=== PATIENT | female | born 1980 | race Caucasian/White ===

== ENCOUNTER → 2016-07-28 | Outpatient (CLI) | payer BC, OTHER ==
[~2016-07-28] MED LIST: BUPR8SUB19 SL; GUAN1TAB12 PO; LISD50CA4 PO; PENI-82 PO; SERT25TA PO
[2016-07-28 14:01] LABS: BENZODIAZEPINE, URINE NEG (NEG); COCAINE,URINE NEG (NEG); PHENCYCLIDINE, URINE NEG (NEG)
== END | disposition home or self-care (01) ==
LOC: C.LAB1850 12:18
PROVIDERS: ATTEND Psychiatry & Neurology Psychiatry
DX: F33.2 Major depressive disorder, recurrent severe without psychotic features (principal)

== ENCOUNTER 2016-08-07 02:39 | Emergency (ER) | payer BC, OTHER ==
[~2016-08-07] VITALS: Ht 162.6 cm; Wt 60.0 kg
[~2016-08-07 02:39] MED LIST changes: -PENI-82 PO
[2016-08-07 02:44] VITALS: TEMP 36.6; Ht 162.6 cm; Wt 60.0 kg
[2016-08-07] MEDS ORDERED: KETOROLAC TROMETHAMINE 30 MG/ML VIAL IV STA (02:58)
--- NOTE | 2016-08-07 03:04 | EMERGENCY ROOM VISIT NOTE ---
History Report prepared by Claudia: Heather Arzola Under the Supervision of: Dr. Laney Pierre D.O. First contact with patient: 02:48 Chief Complaint: DENTAL PAIN Stated Complaint: ABSCESSED TOOTH,ETC. Nursing Triage Summary: pt c/o left facial swelling and pain since sunday morning, states does have a bad tooth on left top. has not seen or contacted a dentist History of Present Illness The patient is a 36 year old female who presents to the Emergency Room with complaints of worsening dental pain beginning yesterday. The patient states that she has been experiencing pain due to an abscess to her top tooth. She notes she woke up with pain and swelling. The patient denies fevers or chills. She notes that dental problems have been a worsening issues these past few years. Source of History: patient Onset: yesterday Position: teeth Timing: worsening Associated Symptoms: No chills, No fevers Note: Patient is experiencing swelling to tooth. Review of Systems See HPI for pertinent positives & negatives. A total of 10 systems reviewed and were otherwise negative. Past Medical & Surgical Medical Problems: (1) Bronchitis (2) Chronic low back pain (3) History of drug dependence/abuse (4) IBS (irritable bowel syndrome) (5) Pneumonia (6) Vaginal delivery Surgical Problems: (1) H/O colonoscopy (2) S/P ACL repair Family History Cancer Colitis FATHER Diabetes mellitus MATERNAL GRANDMOTHER FH: lung cancer MATERNAL GRANDFATHER Gallbladder disease Hypertension FATHER Social History Smoking Status: Current Every Day Smoker Alcohol Use: none Marital Status: Housing Status: lives with family, lives with significant other Occupation Status: employed Current/Historical Medications Scheduled Buprenorphine Hcl (Subutex), 0.5 TAB SL BID Guanfacine Hcl (Adhd) (Intuniv), Unknown Dose PO QAM Lisdexamfetamine Dimesylate (Vyvanse), 50 MG PO DAILY Penicillin V Potassium (Veetids), 500 MG PO QID Sertraline (Zoloft), 25 MG PO DAILY Allergies Coded Allergies: No Known Allergies (Unverified , 08/07/16) Physical Exam Vital Signs Date Time Temp Pulse Resp B/P Pulse Ox O2 Delivery O2 Flow Rate FiO2 08/07/16 03:50 63 18 111/55 97 Room Air 08/07/16 02:44 36.6 101 18 126/75 99 Room Air Physical Exam HEENT: Head - normocephalic and atraumatic Pupils are equal, round, and reactive to light. Extraocular eye muscles are intact, and sclera are anicteric. Nose - moist nasal mucosa without discharge. Mouth - moist buccal mucosa. Oropharynx is nonerythematous and there is no tonsillar exudate or edema noted. Left upper molar has half tooth missing, remaining tooth is decayed with surrounding gingival erythema and edema. Ears - Normal TMs. The patient has moderate erythema and edema noted over the left maxilla just be the left eye down to the nasolabial fold Neck: Supple; no JVD, nuchal rigidity, cervical lymphadenopathy, or auscultated bruits. Left sided anterior cervical arthropathy Heart: Tachycardic rate and rhythm. There is a normal S1 and S2 with no murmurs , clicks, or gallops appreciated. Lungs: Clear to auscultation bilaterally with no wheezes, rales, or rhonchi. Abdomen: Soft, completely nontender, nondistended, with good bowel sounds. There are no palpable pulsatile masses or hepatosplenomegaly. There is no guarding, rigidity, or rebound noted. Extremities: No evidence of cyanosis, clubbing, or edema. There are easily palpable peripheral pulses. Skin: warm and dry with good turgor and no rashes. Medical Decision & Procedures Laboratory Results 08/07/16 03:15 Red Blood Count 4.30, Mean Corpuscular Volume 91.2, Mean Corpuscular Hemoglobin 32.6, Mean Corpuscular Hemoglobin Concent 35.7, Mean Platelet Volume 9.3, Neutrophils (%) (Auto) 62.5, Lymphocytes (%) (Auto) 26.1, Monocytes (%) (Auto) 8.3, Eosinophils (%) (Auto) 2.2, Basophils (%) (Auto) 0.6, Neutrophils # (Auto) 6.57, Lymphocytes # (Auto) 2.74, Monocytes # (Auto) 0.87, Eosinophils # (Auto) 0.23, Basophils # (Auto) 0.06 Test 08/07/16 03:15 White Blood Count 10.50 K/uL (4.8-10.8) Red Blood Count 4.30 M/uL (4.2-5.4) Hemoglobin 14.0 g/dL (12.0-16.0) Hematocrit 39.2 % (37-47) Mean Corpuscular Volume 91.2 fL (80-100) Mean Corpuscular Hemoglobin 32.6 pg (25-34) Mean Corpuscular Hemoglobin Concent 35.7 g/dl (32-36) Platelet Count 186 K/uL (130-400) Mean Platelet Volume 9.3 fL (7.4-10.4) Neutrophils (%) (Auto) 62.5 % Lymphocytes (%) (Auto) 26.1 % Monocytes (%) (Auto) 8.3 % Eosinophils (%) (Auto) 2.2 % Basophils (%) (Auto) 0.6 % Neutrophils # (Auto) 6.57 K/uL (1.4-6.5) Lymphocytes # (Auto) 2.74 K/uL (1.2-3.4) Monocytes # (Auto) 0.87 K/uL (0.11-0.59) Eosinophils # (Auto) 0.23 K/uL (0-0.5) Basophils # (Auto) 0.06 K/uL (0-0.2) RDW Standard Deviation 41.1 fL (36.4-46.3) RDW Coefficient of Variation 12.3 % (11.5-14.5) Immature Granulocyte % (Auto) 0.3 % Immature Granulocyte # (Auto) 0.03 K/uL (0.00-0.02) Laboratory results per my review. Medications Administered Medications (Trade) Dose Ordered Sig/Bran Route Start Time Stop Time Status Last Admin Dose Admin Ketorolac Tromethamine (Toradol Inj) 30 mg NOW STAT IV 08/07/16 02:58 08/07/16 03:00 DC 08/07/16 02:58 30 MG Ceftriaxone Sodium (Rocephin Inj) 1 gm NOW STAT IV 08/07/16 03:27 08/07/16 03:29 DC 08/07/16 03:27 1 GM Procedure Toradol Inj 30 mg IV. Rocephin Inj 1 gm IV. ED Course 0250: Past medical records reviewed. The patient was evaluated in room A2. A complete history and physical exam was performed. An IV lock was initiated and labs were drawn as above. 0258: Toradol Inj 30 mg IV. 0327: Rocephin Inj 1 gm IV. 0331: I reevaluated the patient. She is feeling better after the Toradol. 0342: Upon reevaluation, the patient is hemodynamically stable. I discussed findings and results with her. She verbalized agreement of the treatment plan. She was discharged home. Medical Decision The patient is a 36 year old female who presents to the ED with dental pain. Differential diagnosis includes dental abscess, facial cellulitis, dental carries, fracture teeth. Lab findings include normal white blood count, stable H&H. This is a 36-year-old female patient who presents emergency department with significant pain to the left upper mouth and swelling and redness noted to the left cheek. The patient has no fever or leukocytosis. The patient was given an IV dose of Rocephin here in the emergency department and she'll be discharged home on penicillin. She plans to follow-up with her dentist. She was told to return to the emergency department she developed any worsening symptoms such as fever or increased swelling or edema to the face. Impression Primary Impression: Dental abscess Additional Impression: Facial cellulitis Scribe Attestation The scribe's documentation has been prepared under my direction and personally reviewed by me in its entirety. I confirm that the note above accurately reflects all work, treatment, procedures, and medical decision making performed by me. Departure Information Dispostion Home / Self-Care Prescriptions Penicillin V Potassium (Veetids) 500 Mg Tab 500 MG PO QID, #40 TAB Prov: Laney Pierre D.O. 08/07/16 Referrals No Doctor, Assigned (PCP) Forms HOME CARE DOCUMENTATION FORM, IMPORTANT VISIT INFORMATION Patient Instructions ED Dental Abscess Facial Cellulitis, My [facility] Additional Instructions Rest. Ibuprofen - 600mg every 6 hours with food for pain Penicillin - 1 tab. every 6 hours Follow up with the dentist later today. Return to the ER if you develop any worsening symptoms such as fever or spread of redness on face or eye Problem Qualifiers
[2016-08-07 03:23] LABS: BASO % 0.6 %; BASO ABS # 0.06 K/uL (0-0.2); COMPLETE YES; EOS % 2.2 %; HEMATOCRIT 39.2 % (37-47); IG% 0.3 %; LYMPH % 26.1 %; LYMPH ABS # 2.74 K/uL (1.2-3.4); MEAN CELL VOLUME 91.2 fL (80-100); MEAN CORPUSCULAR HEMOGLOBIN 32.6 pg (25-34); MEAN CORPUSCULAR HGB CONC 35.7 g/dl (32-36); MEAN PLATELET VOLUME 9.3 fL (7.4-10.4); MONO % 8.3 %; NEUT % 62.5 %; PLATELET COUNT 186 K/uL (130-400)
[2016-08-07] MEDS ORDERED: CEFTRIAXONE SOD INJ 1 GM ADDVIAL IV STA (03:27)
[2016-08-07] MEDS ORDERED: PENI-82 PO (03:40)
[2016-08-07 03:50] VITALS: BP 111/55; PULSE 63; O2SAT 97
== END 2016-08-07 03:57 | disposition home or self-care (01) ==
LOC: C.EDB 02:40 → C.EDA 03:57
DX: K04.7 Periapical abscess without sinus (principal); L03.211 Cellulitis of face; F17.210 Nicotine dependence, cigarettes, uncomplicated; Z83.79 Family history of other diseases of the digestive system; Z83.3 Family history of diabetes mellitus; Z82.49 Family history of ischemic heart disease and other diseases of the circulatory system